=== PATIENT | male | born 1970 | race Caucasian/White ===

== ENCOUNTER → 2016-11-29 | Outpatient (CLI) | payer OTHER ==
[~2016-11-29] MED LIST: DIVA500T3 PO; TRAZ1TAB9 PO
[2016-11-29 16:30] LABS: ALT/SGPT 26 U/L (12-78); AST/SGOT 12 U/L (15-37); BLOOD UREA NITROGEN 20 mg/dl (7-18); BUN/CREATININE RATIO 21.6 (10-20); CALCIUM 8.6 mg/dl (8.5-10.1); CARBON DIOXIDE 27 mmol/L (21-32); CHLORIDE 111 mmol/L (98-107); CHOLESTEROL 205 mg/dl (0-200); CREATININE 0.91 mg/dl (0.60-1.40); GLUCOSE 92 mg/dl (70-99); POTASSIUM 4.1 mmol/L (3.5-5.1); SODIUM 144 mmol/L (136-145)
[2016-11-29 16:41] LABS: ALB/GLOB RATIO 1.3 (0.9-2); ALKALINE PHOSPHATASE 44 U/L (45-117); CHOLESTEROL/HDL RATIO 4.3; HDL CHOLESTEROL 48 mg/dl; LDL CHOLESTEROL CALCULATED 139 mg/dl; THYROID STIMULATING HORMONE 0.621 uIu/ml (0.300-4.500); TRIGLYCERIDES 91 mg/dl (0-150); VERY LOW DENSITY LIPOPROT CALC 18 mg/dl
== END | disposition home or self-care (01) ==
LOC: C.LAB 11:21
PROVIDERS: ATTEND Psychiatry & Neurology Psychiatry
DX: Z51.81 Encounter for therapeutic drug level monitoring (principal); Z79.899 Other long term (current) drug therapy

== ENCOUNTER 2017-12-12 10:30 | Emergency (ER) | payer OTHER ==
[~2017-12-12] VITALS: Ht 172.7 cm; Wt 93.5 kg
[~2017-12-12 10:30] MED LIST changes: +TRAZ-122 PO; -TRAZ1TAB9 PO
[2017-12-12 10:34] VITALS: TEMP 36.7; Ht 172.7 cm; Wt 93.5 kg
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
[2017-12-12] MEDS ORDERED: IBUPROFEN 200 MG TAB PO STA (11:01)
[2017-12-12] MEDS ORDERED: HYDROCODONE/ACETAMIN 5/325MG TAB PO STA (11:01)
--- NOTE | 2017-12-12 11:35 | DIAGNOSTIC IMAGING REPORT ---
R FOREARM 2 VIEWS ROUTINE CLINICAL HISTORY: 47 years-old Male presenting with s/p LONG TERM, R forearm, hip/femur abrasion and pain. TECHNIQUE: Frontal and lateral views of the right forearm are obtained. COMPARISON: 11/29/2010. FINDINGS: Multiple ossicles noted in the region of the elbow, which have increased since prior exam likely degenerative in etiology. Degenerative changes of the radial head. Proximal and distal radial ulnar articulations intact. Radiocarpal articulations normal. No acute fracture or malalignment. No radiographic soft tissue abnormality. IMPRESSION: 1. No acute osseous injury. 2. Degenerative changes of the elbow. Electronically signed by: Raghu Grey M.D. 12/12/2017 11:33 AM Dictated Date/Time: 12/12/2017 11:32 AM
[2017-12-12] MEDS ORDERED: FLUO40CA8 PO (11:38)
--- NOTE | 2017-12-12 11:46 | DIAGNOSTIC IMAGING REPORT ---
R PELVIS/UNILATERAL HIP 2-3VIEWS CLINICAL HISTORY: 47 years-old Male presenting with s/p [facility], R forearm, hip/femur abrasion and pain. TECHNIQUE: Single frontal view of the pelvis and frontal and frog-leg lateral views of the right hip were obtained. COMPARISON: CT from 05/20/2016. FINDINGS: Sacroiliac joints, hip joints, and pubic symphysis congruent. Lower lumbar spine normal. Bony pelvis intact. Femoral necks intact. Specifically, the right hip demonstrates no significant degenerative change or fracture. No malalignment. No radiographic soft tissue abnormality. IMPRESSION: No acute osseous injury of the pelvis or right hip. Electronically signed by: Raghu Grey M.D. 12/12/2017 11:45 AM Dictated Date/Time: 12/12/2017 11:44 AM
[2017-12-12 12:22] VITALS: BP 134/83; PULSE 69; O2SAT 97
== END 2017-12-12 12:23 | disposition home or self-care (01) ==
LOC: C.EDB 10:31 → C.EDC 12:23
DX: T14.8XXA Other injury of unspecified body region, initial encounter (principal); V29.9XXA Motorcycle rider (driver) (passenger) injured in unspecified traffic accident, initial encounter; I48.91 Unspecified atrial fibrillation; F12.90 Cannabis use, unspecified, uncomplicated; F31.9 Bipolar disorder, unspecified; Z87.891 Personal history of nicotine dependence